=== PATIENT | female | born 1985 ===

== ENCOUNTER 2023-03-22 10:28 | Emergency (ER) | payer OTHER ==
[~2023-03-22] VITALS: Ht 177.8 cm; Wt 104.3 kg
[2023-03-22] MEDS ORDERED: OMEPRAZOLE20 M2 (10:57)
== END 2023-03-22 18:58 | disposition home or self-care (01) ==
LOC: ER 10:28
DX: M62.838 Other muscle spasm (principal); M54.2 Cervicalgia